=== PATIENT | female | born 1985 | race Caucasian/White ===

== ENCOUNTER 2016-09-06 05:35 | Inpatient (IN) | payer OTHER ==
[~2016-09-06] VITALS: Ht 157.5 cm; Wt 94.3 kg
[~2016-09-06 05:35] MED LIST: CYCL10TA9 PO; HYDR-4003 PO
[2016-09-06] MEDS ORDERED: Carboprost 250 mCg/mL Inj IM PRN ×2 (06:05→09:40)
[2016-09-06] MEDS ORDERED: Methylergonovine 0.2 mg/mL Inj IM PRN ×2 (06:05→09:40)
[2016-09-06] MEDS ORDERED: Oxytocin 10 Unit/mL Inj IM PRN ×2 (06:05→09:40)
[2016-09-06] MEDS ORDERED: Sodium Citrate-Citric Acid 15 mL Solution PO SCH (06:05)
[2016-09-06] MEDS ORDERED: Hemorrhage Kit, Post Partum XX ONE ×2 (06:05→09:40)
[2016-09-06] MEDS ORDERED: CeFAZolin Inj 2 GM in Dextrose 5%-Pha MIX 50 ML IV ONE (06:10)
[2016-09-06] MEDS: Lactated Ringer's 1,000 ML IV SCH ×2 (06:44→09:36)
--- NOTE | 2016-09-06 07:21 | HP ---
[address] [address] HISTORY AND PHYSICAL PATIENT: MILLA KING : 1985 MR#: [id number] ADMIT: 09/06/2016 JOB ID: [id number] DATE: 09/06/2016 SUBJECTIVE: The patient is a 30-year-old, AB0, woman with 1 prior section, followed by 8 successful trials of labor. Due date is October 01, 2016, placing the patient on the date of admission at 36 and 3/7 weeks of gestation. She has been found to have placenta previa, posteriorly located, thus is not over the uterine scar, and without placenta accreta per [facility] ultrasonography and perinatology impression. Due to placenta previa, repeat section is obviously indicated, and the perinatologist (Dr. Tricia Nunes) and I have discussed issues related to her delivery. She would be considered to be a low risk placenta previa due to its posterior nature as well as the fact that there is no identifiable placenta accreta per perinatologist's ultrasound and impression. Dr. Nunes and I agree that this would be an appropriate case for delivery in our [facility] thus, although we will be prepared for intraoperative and/or hemorrhage on the basis of atony related to multiple prior births, which could happen following vaginal or section. Thus, in the room, we will have Hemabate, Pitocin, Methergine, and Cytotec, and strategic plans available for use of B Mitchell technique or Bakri Balloon if needed, and we will also have at least a couple units of packed red blood cells ready. The patient and have understood these things with multiple conversations with perinatology as well as myself and typically with contract administration coordinator (Turkish and Ukranian speaking individuals assisting). They have understood increased risk of bleeding on the basis of multiple prior deliveries and increased potential for atonic uterus, the various maneuvers that we would consider as listed, yet also the potential for even hysterectomy if in fact, bleeding problems are significant and other maneuvers fail. The patient has understood that section (as her 1st one was as well) is associated with potential risks including bleeding, infection, injury to the urinary tract and bowel, anesthetic risks, wound problems, deep venous thrombosis, pulmonary embolus, et cetera. There is no guarantee that complication would not occur. The patient has signed informed consent for surgery and facilitated by contract administration coordinator and she has signed of her own free will, with all questions have been answered for she and her . In summary, then, the patient will be admitted to [facility] on September 06, 2016, on which day she will undergo repeat section in the setting of posterior placenta previa at 36-1/2 weeks along, consistent with the 36-37 week recommendation per perinatology. PHYSICAL EXAMINATION: On admission, height 62 inches, weight 208 pounds, blood pressure 120/72. Neck: No thyromegaly. Lungs clear auscultation and percussion. Heart regular in rate and rhythm. Abdomen: Fundal height 41 cm. Positive heartbeat. DIAGNOSTIC DATA: Hemoglobin 10.0. Platelets normal. IMPRESSION: 1. A 36 and 3/7 weeks . 2. Complete placenta previa, posterior, no placental accreta per perinatologist's ultrasonography, [facility]. 3. Prior section x1, subsequent 8 vaginal deliveries, now for repeat section in the setting of placenta previa. 4. Increased weight. 5. Reported back problems between pregnancies, details? She describes as low back pain that made it difficult to ambulate in the past, although no recent complaint for many months. 6. Mild anemia. 7. Rh positive status. 8. Rubella immune status. 9. Recent GBS test taken, result unavailable at the time of this dictation. 10. No known drug allergies. 11. Family history of diabetes (grandmother). PLAN: The patient will be admitted to [facility] on September 06, 2016, on which day she will undergo a repeat section in the setting of complete placenta previa, posterior, without accreta. We will be ready in setting of multiple prior deliveries for potential uterine atony, with various medicinal agents as well as other techniques to utilize if needed to help reduce bleeding. Blood will also be typed and crossed ahead. Note that I have discussed this case with perinatology at [facility], anesthesia at [facility], pediatric hospitalist at [facility], and multiple charge nurses at [facility]. BEA
--- NOTE | 2016-09-06 07:31 | PCM.HPANE ---
Patient Data Surgeon Admitting Provider:David Curran MD Attending Provider:David Curran MD Primary Care Physician:David Curran MD Other Provider:Reinaldo Blevins Anesthesia Reason for Visit Repeat C Section REPEAT C SECTION Ht/WT & BMI Body Mass Index Allergies Coded Allergies: No Known Allergies (Verified , 10/14/15) Diabetes History Hx Diabetes?: No Medications Hypertension Medication: No Home Meds Incl Beta Brianna: No Active Scripts Cyclobenzaprine 10 Mg Aetohp36 Mg PO BID PRN Spasm #20 TABLET Prov:Javid Luis PAC 10/14/15 Hydrocodone-Acetaminophen 5-325 mg 1 Each Tablet1 Tablet PO TID PRN For Pain # 12 TABLET Ref 0 Prov:Javid Luis PAC 10/14/15 History History of ENT Problems?: No Hx of Heart Problems?: No Cardiovascular History: Denies:: Congestive Heart Failure Hypertension Hx of Respiratory Problem?: No Respiratory History: Denies:: Tuberculosis Hx Neurologic Problems?: Yes Other History/Comments History of low back pain. Hx of GI Problems?: No Female Hx: Positive for:: Currently Other History/Comment 10th . Hx Musculoskeletal Problems?: Yes Musculoskeletal History: Positive for:: Back Injury Hx of Psycho/Social Problems?: No Hx Surgeries?: Yes (CSECTION) Other History/Comment GA with no anesthesia problems. Hx Diabetes: No Smoking Status: Never Smoker Stop/Bang Treated for Sleep Apnea?: No Do You Have a CPAP Machine?: No S-Snoring: Do You Snore Loudly: No T-Tired: feel tired, fatigued: No O-Obsered: Observed not breath: No P-Blood Pressure: treated: No B- Body Mass Index > 35 kg/m2: Yes A- Age over 50: No N- Neck Large Circumference: No G- Gender Male: No MEY Risk Assessment: Low Risk, <3 Yes Risk Assessment Category Category 1A: Patient has history of documented sleep apnea, and HAS NOT received any narcotic, sedative or anesthesia administration during this stay. Category 1B: Patient has history of documented sleep apnea, and HAS received any narcotic , sedative or anesthesia administration during this stay Category 2: Patient has SUSPECTED Obstructive Sleep Apnea, and HAS received any narcotic , sedative or anesthesia administration during this stay. Category 3: Patient has SUSPECTED Obstructive Sleep Apnea and HAS NOT received narcotic, sedative or anesthesia administration during this stay. Category 4: Outpatient in Procedural Areas with known sleep apnea or who screen positive for High Risk via the STOP/BANG questionnaire. Exam Exam General Appearance: Alert, Oriented X3, Cooperative, No Acute Distress HEENT/AIRWAY: MP 2 Lungs: Clear to Auscultation, Normal Air Movement Heart: Exam Unremarkable, Regular Rate/Rhythm, No Murmurs/Rubs/Gallops Meds/Labs/Diagnostics Admission Meds Current Medications Lactated Ringer's 1,000 ml @ 125 mls/hr Q8H IV Last administered on 09/06/16 06:44; Start 09/06/16 at 06:01; Stop 09/06/16 at 14:00 Cefazolin Sodium/ Dextrose/Water (Ancef Inj/[facility] To Mix) 50 ml @ 100 mls/hr ONCE ONCE IV Last administered on 09/06/16 06:56; Start 09/06/16 at 06: 10; Stop 09/06/16 at 06:39; Status DC Plan Impression Patient chart reviewed, patient interviewed and anesthestic plan with risks, benefits, and alternatives discussed, and informed consent obtained. ASA Physical Status: ASA2 Mod Systemic Disease Anesthetic Plan: SAB Bene/Risks/Altern/Consents: Yes HP Complete Prior to Induction: Yes Osman Wakefield MD Sep 06, 2016 07:31
[2016-09-06] MEDS ORDERED: Morphine PF 1 mg/mL 10 mL Inj ONE (07:34)
[2016-09-06] MEDS ORDERED: Ondansetron 2 mg/mL 2 mL Inj IVPUSH PRN (08:25)
[2016-09-06] MEDS ORDERED: MetoCLOpramide 5 mg/mL 2 mL Inj IVPUSH PRN (08:25)
[2016-09-06] MEDS ORDERED: EPHEDrine Sulfate 50 mg/mL Inj IVPUSH PRN (08:25)
[2016-09-06] MEDS ORDERED: fentaNYL-PF 50 mCg/mL 2 mL Inj IVPUSH PRN (08:25)
[2016-09-06] MEDS ORDERED: Morphine PF 1 mg/mL 10 mL Inj EPIDURAL ONE (08:25)
[2016-09-06] MEDS ORDERED: Atropine 0.4 mg/mL Inj IV PRN (08:25)
[2016-09-06] MEDS ORDERED: Acetaminophen IV 1,000 MG in IV Premix 1 EACH IV ONE (09:15)
--- NOTE | 2016-09-06 09:29 | PCM.ANEP1 ---
Post Anesthesia Phase 1 PACU Phase 1 Assessment Anesthetic Administered: SAB Level of Alertness: Awake, talking STEVENS's with Equal Strength: Yes Pain: No Nausea or Vomiting: No Oxygen Delivery: Room Air Lungs: Clear to Auscultation, Normal Air Movement Dermatome Level: T12 (Symphysis Pubis) Osman Wakefield MD Sep 06, 2016 09:29
[2016-09-06] MEDS ORDERED: Lactated Ringer's 1,000 ML IV SCH (09:39)
[2016-09-06] MEDS ORDERED: LANOlin HPA 7 Gm Ointment TOPICAL PRN (09:40)
[2016-09-06] MEDS ORDERED: Acetaminophen IV 1,000 MG in IV Premix 1 EACH IV PRN (09:40)
[2016-09-06] MEDS ORDERED: Measles-Mumps-Rubella Vaccine 0.5 mL Inj SUBQ ONE (09:40)
[2016-09-06] MEDS ORDERED: hydrOXYzine Pamoate 25 mg Capsule PO PRN (09:40)
[2016-09-06] MEDS ORDERED: Influenza (Adult) Vaccine 0.5 mL Syringe IM ONE (09:40)
[2016-09-06] MEDS ORDERED: Oxytocin 30 Units/500 mL LR 30 UNITS in IV Premix 1 EACH IV PRN (09:40)
[2016-09-06] MEDS ORDERED: TdaP Vaccine 0.5 mL Inj IM ONE (09:40)
[2016-09-06] MEDS ORDERED: Sodium Chloride LOK Flush 10 mL Syringe IVFLUSH PRN (09:40)
--- NOTE | 2016-09-06 09:54 | PCM.ANEP2 ---
Post Anesthesia Evaluation ASA/CMS Post Anesthesia VS in Patient's Normal Range?: Yes Resp Stable; Airway Patent?: Yes CV Function & Hydration Stable: Yes Mental Status Recovered?: Yes Pain control Satisfactory?: Yes N/V Control Satisfactory?: Yes Osman Wakefield MD Sep 06, 2016 09:54
[2016-09-06] MEDS ORDERED: Oxytocin 10 Unit/mL Inj ONE (13:54)
[2016-09-06] MEDS ORDERED: Dexamethasone 4 mg/mL Inj ONE (13:54)
[2016-09-06] MEDS ORDERED: Bupiv-Spinal 0.75%/Dex 8.25% 2 mL Inj ONE (13:54)
[2016-09-06] MEDS ORDERED: Ondansetron 2 mg/mL 2 mL Inj ONE (13:54)
[2016-09-06] MEDS ORDERED: Phenylephrine/NS 100 mCg/mL 10 mL Syringe IVPUSH ONE (13:54)
[2016-09-06] MEDS: CeFAZolin Inj 2 GM in IV Premix 1 EACH IV SCH (17:00)
[2016-09-07] MEDS: CeFAZolin Inj 2 GM in IV Premix 1 EACH IV SCH (01:23)
[2016-09-07 06:24] LABS: Mean Corpuscular Hemoglobin 27.8 pg (27.0-35.0); Mean Corpuscular Volume 88.7 fL (81-100)
[2016-09-07] MEDS: oxyCODONE-Acetamin 5-325 mg Tablet PO PRN ×4 (10:48→22:53)
[2016-09-08] MEDS: oxyCODONE-Acetamin 5-325 mg Tablet PO PRN ×4 (03:18→16:11)
--- NOTE | 2016-09-08 08:43 | PROG NOTE ---
[address] [address] PROGRESS NOTE PATIENT: MILLA KING : 1985 MR#: [id number] ADMIT: 09/06/2016 JOB ID: [id number] DATE: 09/07/2016 at 2200 hours. SUBJECTIVE: The patient underwent repeat section on September 06, 2016 in setting of 36 -1/2 week and complete placenta previa. The patient has done well postoperatively, with progression in ambulation, voiding without any worrisome bleeding, with reasonable pain management, with stable vitals and afebrile. Baby has been managed per hand suture winder in the nursery due to prematurity. The baby has been doing okay. Note that postoperative/ hemoglobin was 8.0, not a surprising drop in the setting of preoperative hemoglobin in the 10 range, then with some intravenous fluids, and fluid shifts associated with surgery and with blood loss of a slightly greater than average related to hypervascularity of the lower uterine wall as noted upon its incision. Once again, uterine bleeding has not been a concern. PLAN: Continue postoperative/ care. May be able to discharge the patient to home or boarder status tomorrow, i.e., on September 08, 2016, the second postop/ day. The patient will continue to track baby recovery. BEA
--- NOTE | 2016-09-08 09:17 | OP ---
[address] [address] OPERATIVE REPORT PATIENT: MILLA KING : 1985 MR#: [id number] ADMIT: 09/06/2016 JOB ID: [id number] DATE OF SURGERY: 09/07/2016 SURGEON: David Curran MD. SAMPLE ROOM SUPERVISOR: Benny French MD. ANESTHESIA: Spinal. PREOPERATIVE DIAGNOSIS(ES): 1. A 36 and 3/7 weeks . 2. Complete placenta previa, posterior, no ultrasound sign of accreta. 3. Prior section, for repeat in setting of placenta previa. 4. Prior section + eight prior vaginal deliveries. POSTOPERATIVE DIAGNOSIS(ES): * Same as Preoperative Diagnoses. PROCEDURES PERFORMED: Repeat low transverse section. FINDINGS: Fetus was in vertex presentation. Amniotic fluid was clear. Baby was active and crying and vigorous upon delivery. Note that the placenta was posteriorly located and wrapped towards the left side, yet not involving the prior surgical scar nor with any sign of accreta. Uterus contracted very well upon delivery, note approximately 600 cc of blood loss at surgery, the majority from some hypervascularity of the uterine wall noted upon the incision. Ovaries and tubes were normal. Bleeding was minimal at procedure's close. The patient had been stable. Suspect that we will have a drop in hemoglobin simply related to dilution, intravenous fluids, plus blood loss, yet the patient should tolerate this okay, probably will not need blood products, note that she has been tolerating hemoglobin to about 10 during the , chronically. Train Clerk will follow baby closely in light of prematurity. The patient and will be counseled with the benefit of air crew member regarding future pregnancies. There is increased risk now with having had two sections with additional sections, although this would probably be not recommended as a delivery route in light of having had two, if she was to become again. She has had 10 babies total, with increased risk of uterine atony and bleeding on that basis as well. It would be prudent to cease additional childbearing in this setting though we will see what is their decision. PROCEDURE IN DETAIL: The patient was placed in supine position on the operating table with MAC sedation and spinal anesthesia. She was shifted in the left lateral tilt position and Stanton catheter was placed. Abdomen was prepped and draped in the usual sterile manner. Appropriate time-out was then taken, discussing the case, placenta previa, status, etc. A Pfannenstiel incision was then made through the old surgical scar and this incision was carried through skin, subcutaneous tissues and fascial layer. Cautery was applied where needed to effect complete hemostasis. Rectus muscles then from the overlying fascia using blunt and sharp dissection, and the rectus muscles then in midline. Peritoneal cavity was carefully entered. A transverse incision was then made at the vesicouterine peritoneal fold, that is helping to develop a bladder flap as well as the incision then carried through to the lower uterine segment which was thick. This incision was carried down through the entire uterine wall down the amniotic sac, which was then ruptured and clear fluid recovered. The lower uterine segment was surprisingly not very well developed. Following the rupture of membranes, the head was then delivered easily, followed by the shoulders, body and extremities. Baby was active, crying and vigorous. Cord was clamped and cut and the was carried over to the warmer. Cord was obtained for routine studies and the placenta was then delivered with membranes intact, from the uterine cavity. There was no sign of accreta. Uterus was exteriorized and gauze curettage accomplished. Cervix noted to be at about 1.5 cm dilated. Uterus contracted well, with massage plus intravenous Pitocin infusion, and note that an additional 0.5 cc of Hemabate was provided intramuscularly (thigh) simply to help ensure that there was reduced atony with this. Uterus remained well contracted. There was some increased blood loss from the uterine incision with clearly developed, perhaps because of placental location low (placenta previa), plus some hypervascularity in the area. The uterine incision was closed in a running manner in two layers, using #1 chromic suture, with complete hemostasis achieved, and excellent thickness/closure. The uterus was remaining well contracted. There was no laceration involving the bladder. Urine remained clear. Fallopian tubes and ovaries were noted to be normal. Cul de sac area was irrigated and suctioned of blood, clots, and fluid. Uterus was returned to the abdominal cavity. Instrument, needle and sponge counts were all found to be correct. Multiple counts were taken during the case. At this point, FloSeal was placed over the uterine incision as a precaution in light of the hypervascularity, and an Interceed sheet was then placed over the lower uterine segment incision to help reduce adhesion formation. Rectus muscles were then drawn together in [id number] fashion using #1 chromic interrupted suture and the subfascial plane was inspected and cautery applied where needed. The fascial layer was then closed in a running manner using #1 PDS, with great care given to bury the knot on each side. The subcutaneous tissues were irrigated and light cautery applied where needed, and the subcutaneous layer thickness was noted to be at most at 2 cm or less. The skin incision was then closed with davidson and pressure dressing was applied. Uterus was expressed of blood and clots, minimal. Procedure was thus complete. The patient taken to her room for recovery. ESTIMATED BLOOD LOSS: 600 cc. COMPLICATIONS: None. PROGNOSIS: Good for surgical recovery. MTDD
[2016-09-08 18:16] VITALS: BP 106/52; PULSE 78; RESP 16
--- NOTE | 2016-09-08 18:19 | PCM.DIOB ---
Obstetrical Disch Instruction Dates of Hospitalization Date of Hospital Admission Sep 06, 2016 at 05:35 Providers Admitting Physician: David Curran MD Primary Care Physician: David Curran MD Attending Physician: David Curran MD Discharge Diagnosis Problems: (1) Status: Acute ICD Code: Z33.1 (2) Placenta previa Status: Acute ICD Code: O44.10 Diet Discharge Diet: No restrictions Activity Discharge Activity-General: Pelvic Rest for 6 weeks, No lifting >10 pounds for 4-6 weeks Dressing and Incisional Care Dressing Care: Allow Steri Stripes to fall off Hygiene: May shower, DO NOT soak incision under water, NO bathtub, hot tub or whirlpool Follow Up Plan Follow-up appointment: Weeks (Follow up at 2 and at [address] Curran.) Call your provider for: Fever or Chills, Shortness of breath, Heavy vaginal bleeding, Red painful breasts David Curran MD Sep 08, 2016 18:19
[2016-09-08] MEDS ORDERED: FERR-83 PO (18:24)
[2016-09-08] MEDS ORDERED: IBUP-1827 PO (18:24)
[2016-09-08] MEDS ORDERED: OXYC1TAB24 PO (18:24)
[2016-09-08] MEDS ORDERED: DOCU-41 PO (18:24)
[2016-09-08] MEDS ORDERED: Carboprost 250 mCg/mL Inj IM ONE (18:59)
--- NOTE | 2016-09-10 18:21 | DIS ---
[address] [address] DISCHARGE SUMMARY PATIENT: MILLA KING : 1985 MR#: [id number] ADMIT: 09/06/2016 JOB ID: [id number] DIS: 09/08/2016 DISCHARGE DIAGNOSES: 1. A 36-1/2 week , delivered. 2. Status post section in the setting of placenta previa. 3. Complete placenta previa, without accreta. 4. Chronic anemia, as noted in , and with more significant anemia bleeding , consistent with blood loss and hemodilution. PROCEDURES PERFORMED DURING HOSPITALIZATION: Repeat low transverse section. HOSPITAL COURSE: Patient admitted to [facility] on September 06, 2016, on which day she underwent repeat section at 36+ weeks along in the setting of complete placenta previa. During the postoperative/ timeframe, patient did well, with stable vitals, afebrile, reasonable bleeding, with reasonable pain management, ambulating, voiding, and handling baby well. She did not have any incisional problems. She did not have any leg pain or shortness of breath. hemoglobin was 8.1, down from 10 range noted preoperatively. The patient requested discharge to home on the second postoperative/ day and her request was granted. DISCHARGE PROGRAM: Patient will call p.r.n., yet otherwise she will follow up at two and at six weeks for postoperative/ checkups, appointments made. She had davidson discontinued prior to discharge, with benzoin and half-inch Steri-Strip application. She will observe pelvic rest and not do any heavy lifting for six weeks postop/. DISCHARGE MEDICATIONS: Include Percocet, ibuprofen, ferrous sulfate and Colace, prescriptions written. She also used vitamins, of which she has supply at home.
--- NOTE | 2016-09-11 14:03 | PATH ---
SURGICAL PATHOLOGY Attending Physician:David Curran M.D CASE STATUS: Signed Out PATIENT NAME: MILLA KING PID: [id number] : 1985 DATE COLLECTED:09/06/2016 23:05 SPECIMEN: Placenta CLINICAL HISTORY: WITH HISTORY OF PREVIA, 36 WEEKS 1). PLACENTA FINAL DIAGNOSIS: Placenta with Umbilical Cord and Membranes. 1. Placenta: 657 grams, which is approximately the 97th percentile for 36 weeks gestation. Negative for evidence of infarction. Negative for significant inflammation. Negative for significant vascular lesions. 2. Umbilical cord: Furcate insertion 6.4 cm from the placental edge. Three normal blood vessels. Negative for significant inflammation. 3. membranes: Ruptured1.1 cm from the free placental edge. Negative for significant inflammation. ICD10 C44.03 GROSS DESCRIPTION: The specimen is received in formalin, labeled with the patient's name and consists of an intact placenta and includes placental disc (657 g, 20.5 x 17.8 x 3.8 cm), umbilical cord (length-21.5 cm, diameter-1.7 x 1.5 cm) and membranes. The membranes are ruptured 1.1 cm from the free edge of the placenta and are semi-translucent. The umbilical cord is edematous, has a furcate insertion 6.4 cm from the edge of the placenta and contains 3 vessels. The surface is firm and bosselated with focal subamniotic hemorrhaging (11.2 x 6.7cm) involving approximately 25% of the surface. The vessels are dilated and firm. A loosely attached cardozo-yellow nodule (0.5 x 0.4 x 0.2 cm) is identified 5.6 cm from the edge of the placenta and 4.4 cm from the umbilical cord insertion. No evidence of meconium is identified. The maternal surface is dark maroon with normal cotyledon formation. The placental disc is spongy with no hematomas, infarcts, nodules, masses, or lesions. Section code: (A) edge of placenta with membranes; (B) umbilical cord; (C-D) placenta, full thickness section with bisected nodule; (E) remaining nodule; (F-G, H-I) placenta, 2 bisected full thickness sections. 4/6/17 ABILIO ICD-9 CODES: CPT CODES: 1: 58660 Electronically Signed Out Jose Crews MD [facility] Pathology [facility] [address], [place] [address] Technical component performed at [facility], [facility] [address], [address]
== END 2016-09-08 19:00 | disposition home or self-care (01) | DRG 766 ==
LOC: FBC 05:35 → EDSTATUS 07:15
PROVIDERS: ADMIT Obstetrics & Gynecology; ATTEND Obstetrics & Gynecology
PROC: 10D00Z1 Extraction of Products of Conception, Low, Open Approach (ICD-10-PCS; principal; 2016-09-07)
DX: O44.03 Complete placenta previa NOS or without hemorrhage, third trimester (principal); D64.9 Anemia, unspecified; Z3A.36 36 weeks gestation of pregnancy; O09.43 Supervision of pregnancy with grand multiparity, third trimester; Z37.0 Single live birth; O99.013 Anemia complicating pregnancy, third trimester; O99.03 Anemia complicating the puerperium